=== PATIENT | male | born 1985 | race African-American/Black ===

== ENCOUNTER 2022-09-30 07:05 | Day surgery (SDC) | payer OTHER ==
[~2022-09-30] VITALS: Ht 180.3 cm; Wt 63.0 kg
[2022-09-30] VITALS (265 sets, daily range): BP systolic 94–223; BP diastolic 59–191
[2022-09-30 08:09] LABS: BASO% 0.5 % (0-3); EOS% 2.3 % (0-8); HEMATOCRIT 31.3 % (39.0-50.0); HEMOGLOBIN 9.1 g/dl (14.0-18.0); LYMPH% 26.9 % (15-41); MEAN CELL VOLUME 74.5 fL CALC (80.0-100.0); MEAN CORPUSCULAR HGB 21.7 pG CALC (26.0-32.0); MEAN CORPUSCULAR HGB CONC 29.1 g/dL CAL (32.0-36.0); MONO% 8.7 % (2-13); NEUT# 2.63 thou/uL (1.82-7.42); NEUT% 61.6 % (42-76); RED BLOOD COUNT 4.2 mill/uL (4.70-6.10); RED CELL DISTRI WIDTH 17.7 % (11.5-15.5)
[2022-09-30 08:33] LABS: ALBUMIN 4.6 g/dL (3.2-5.0); ALKALINE PHOSPHATASE 71 u/l (38-126); ANION GAP 10 (6-22 (CALC)); BILIRUBIN, TOTAL 0.3 mg/dL (0.0-1.4); BUN 11 mg/dL (9-20); BUN/CREATININE RATIO 16 (12-20 (CALC)); CARBON DIOXIDE 30 mmol/l (22-30); CHLORIDE 102 mmol/l (95-108); CREATININE 0.7 mg/dL (0.7-1.3); GFR FOR AFR.AMER. > 60 ML/MIN (>=60 (CALC)); GFR OTHER RACES > 60 ML/MIN (>=60 (CALC)); POTASSIUM 3.8 mmol/l (3.5-5.1); SGOT/AST 32 u/l (17-59); SODIUM 138 mmol/l (137-146); TOTAL PROTEIN 7.8 g/dL (6.3-8.2)
[2022-09-30] MEDS ORDERED: CLONIDINE0.1 MG PO (14:52)
[2022-09-30] MEDS ORDERED: KLONOPIN2 MG PO (14:52)
[2022-09-30] MEDS ORDERED: NALTREXONE50 MG PO (14:52)
[2022-10-01 03:46] VITALS: BP 94/74
[2022-10-01 07:20] VITALS: BP 159/84
[2022-10-01 10:28] LABS: BASO% 0.2 % (0-3); HEMATOCRIT 36.3 % (39.0-50.0); HEMOGLOBIN 10.6 g/dl (14.0-18.0); IMMATURE GRANULOCYTES 0.2 % (0.0-5.0); LYMPH% 12.9 % (15-41); MEAN CELL VOLUME 73.3 fL CALC (80.0-100.0); MEAN CORPUSCULAR HGB 21.4 pG CALC (26.0-32.0); MEAN CORPUSCULAR HGB CONC 29.2 g/dL CAL (32.0-36.0); MONO% 7.9 % (2-13); NEUT# 4.47 thou/uL (1.82-7.42); NEUT% 78.8 % (42-76); RED BLOOD COUNT 4.95 mill/uL (4.70-6.10); RED CELL DISTRI WIDTH 18.1 % (11.5-15.5)
[2022-10-01 10:43] LABS: ALBUMIN 4.1 g/dL (3.2-5.0); ALKALINE PHOSPHATASE 63 u/l (38-126); BUN 10 mg/dL (9-20); BUN/CREATININE RATIO 14 (12-20 (CALC)); CHLORIDE 111 mmol/l (95-108); CREATININE 0.8 mg/dL (0.7-1.3); GFR FOR AFR.AMER. > 60 ML/MIN (>=60 (CALC)); GFR OTHER RACES > 60 ML/MIN (>=60 (CALC)); MAGNESIUM 1.9 mg/dL (1.6-2.3); POTASSIUM 4.5 mmol/l (3.5-5.1); SGOT/AST 37 u/l (17-59); SODIUM 139 mmol/l (137-146); TOTAL PROTEIN 7.3 g/dL (6.3-8.2)
[2022-10-01 11:07] LABS: ANION GAP 11 (6-22 (CALC)); BILIRUBIN, TOTAL 0.5 mg/dL (0.0-1.4); CARBON DIOXIDE 22 mmol/l (22-30)
[2022-10-01 19:12] VITALS: BP 114/64
[2022-10-01 21:00] VITALS: BP 131/83
[2022-10-01 23:03] VITALS: BP 121/67
[2022-10-01 23:08] VITALS: BP 121/67
[2022-10-02 03:03] VITALS: BP 120/70
[2022-10-02 06:55] VITALS: BP 146/80
== END 2022-10-02 12:20 | disposition home or self-care (01) | DRG 897 ==
LOC: EDSEX 07:05 → ANR 07:05 → MS2 07:05 → ANR 08:00 → MS2 16:02 → ANR 10-02 12:20
PROVIDERS: ATTEND Anesthesiology Critical Care Medicine
DX: F11.20 Opioid dependence, uncomplicated (principal)
CPT/HCPCS: J2060; J2354; J3475